=== PATIENT | female | born 1945 | race Caucasian/White ===

== ENCOUNTER 2019-09-23 14:23 | Inpatient (IN) ==
--- NOTE | 2019-09-23 14:56 | EKG Report ---
Test Performed on : 09/23/2019 2:39:55 PM Test Reason : ABNORMAL LABS Blood Pressure : / mmHG Vent. Rate : 087 BPM Atrial Rate : 087 BPM P-R Int : 168 ms QRS Dur : 074 ms QT Int : 364 ms P-R-T Axes : 038 003 054 degrees QTc Int : 438 ms Normal sinus rhythm. Possible Left atrial enlargement Nonspecific ST abnormality Abnormal ECG No previous ECGs available Unconfirmed Result
[2019-09-23 15:04] LABS: BASO# 0.03 X1000 (0.0-0.2); BASO% 0.3 % (0.0-0.8); EOS# 0.32 X1000 (0.0-0.7); EOS% 2.7 % (0.0-10.0); HEMATOCRIT 36.4 % (37.0-47.0); HEMOGLOBIN 11.8 g/dL (12.0-16.0); IMM GRAN# 0.03 X1000 (0.0-0.04); IMM GRAN% 0.3 % (0.0-0.5); LYMPH# 1.61 X1000 (1.2-3.4); LYMPH% 13.7 % (20.5-51.1); MCH 33.8 PG (27-31); MCHC 32.4 g/dL (33-37); MCV 104.3 FL (81-99); MONO# 1.64 X1000 (0.11-0.59); MPV 9.8 FL (7.4-10.4); NEUT# 8.12 X1000 (1.4-6.5); PLT 317 X1000 (130-400); RBC 3.49 XMIL (4.2-5.4); RDW 14.6 % (11.5-14.5); WBC 11.75 X1000 (4.8-10.8)
[2019-09-23] MEDS ORDERED: SOLU-MEDROL IV ONE (15:16)
[2019-09-23] MEDS ORDERED: DUONEB (A & A) INH ONE (15:16)
[2019-09-23] MEDS ORDERED: NS 1,000 ML IV ONE (15:16)
[2019-09-23] MEDS ORDERED: ZOFRAN IV ONE (15:17)
[2019-09-23] MEDS ORDERED: MORPHINE IV ONE (15:17)
[2019-09-23 15:24] LABS: ALB/GLOB RATIO 0.7; ALBUMIN 3.3 g/dL (3.5-5.0); CALCIUM 9.3 mg/dL (8.8-10.2); CREATININE 3.8 mg/dL (0.5-0.9); PHOSPHORUS 4.1 mg/dL (2.7-4.5); POTASSIUM 4.1 mmol/L (3.5-5.1); TOTAL BILIRUBIN 0.56 mg/dL (0.20-1.00); TOTAL PROTEIN 8.1 g/dL (6.3-8.3)
--- NOTE | 2019-09-23 15:26 | Diag Imaging Result Doc PS360 ---
EXAM: CHEST-PORTABLE INDICATION: short of breath TECHNIQUE: One view COMPARISON: None. FINDINGS: There is minimal elevation of the right hemidiaphragm. The central vasculature is somewhat prominent suggesting mild pulmonary venous congestion. There is no discrete pleural fluid collection or pneumothorax. The cardiac silhouette is borderline prominent. IMPRESSION: Borderline prominent heart and suggestion of mild pulmonary venous congestion. Electronically signed by Micheal Mcnair 09/23/2019 3:24 PM
[2019-09-23 15:46] LABS: URINE SOURCE CLEAN CATCH
[2019-09-23 15:55] LABS: BILIRUBIN URINE NEGATIVE (NEGATIVE); BLOOD URINE MODERATE (NEGATIVE); COLOR ORANGE; GLUCOSE URINE NEGATIVE (NEGATIVE); KETONE URINE NEGATIVE (NEGATIVE); LEUKOCYTES URINE LARGE (NEGATIVE); NITRITE URINE NEGATIVE (NEGATIVE); PROTEIN URINE 300 mg/dL (NEGATIVE); SP GRAVITY URINE 1.017; TURBIDITY URINE TURBID (CLEAR); UROBILINOGEN URINE NORMAL (NORMAL)
[2019-09-23] MEDS ORDERED: ROCEPHIN 1 GM in NS 50 ML IV ONE (15:57)
[2019-09-23 16:01] LABS: UR EPITHELIAL CELLS <10 /HPF (<10); URINE BACTERIA 4+ /HPF; URINE CASTS NONE SEEN; URINE RBC TNTC /HPF (<10); URINE WBC TNTC /HPF (<10); URINE YEAST NONE SEEN
--- NOTE | 2019-09-23 16:07 | PROVIDER DOCUMENTATION ---
This chart was entered by Tessa Dixon Scribe, acting as scribe for Fantasma Negron MD. HPI-General Adult - General Chief Complaint: Abnormal Lab[s] Stated Complaint: RT ARM PAIN Time Seen by Provider: 09/23/19 14:44 Source: patient Allergies/Adverse Reactions: Patient Allergies Allergy/AdvReac Type Severity Reaction Status Date / Time No Known Allergies Allergy Verified 09/23/19 15:48 - History of Present Illness -Gen Adult Nature of Presenting Problems: 74yof presents to ED cc abnormal kidney function labs according to Dr. Hampton who called and told pt to come to ED. Pt also c/o of decreased urine output recently. Pt reports she was seen at Dr. Hampton office this morning to have a Remicade infusion & labs. Pt also had a Reclast infusion 3 weeks ago and has been getting them for years. Pt was treated for LLE cellulitis a few weeks ago with 2 shots of IV ABX and a 10 day course which she has finished. Pt has hx of RA/Osteoarthritis/Emphysema. 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 denies: chills, fever, fatique Eyes: reports: no symptoms reported Ears, Nose, Mouth & Throat: reports: no symptoms reported Cardiovascular: reports: no symptoms reported Respiratory: reports: no symptoms reported Gastrointestinal: reports: no symptoms reported Genitourinary: reports: see HPI, urinary retention. denies: dysuria, hematuria Musculoskeletal: reports: no symptoms reported Integumentary: reports: no symptoms reported Neurological: reports: no symptoms reported Psychiatric: reports: no symptoms reported Endocrine: reports: no symptoms reported Hematologic/Lymphatic: reports: see HPI, other (abnormal kidney function labs) Allergic/Immunologic: reports: no symptoms reported All Other Systems: Reviewed and Negative Past History - Adult - PAST MEDICAL HISTORY-ADULT Review of Records: reports: Nursing Assessment Review, Medications Reviewed, Social history reviewed & non-contributory. Major Childhood Illnesses: reports: denies history Cardiovascular: reports: denies history Respiratory: reports: denies history Gastrointestinal: reports: denies history Obstetrical/Gynecological: reports: denies history Genitourinary: reports: denies history Musculoskeletal: reports: denies history Neurological: reports: denies history Endocrine/Immune: reports: denies history Other Conditions: reports: denies history - IMMUNIZATION STATUS Childhood Immunizations: See Nurse Assessment Flu Vaccine: See Nurse Assessment - FAMILY HISTORY Family History: reviewed, not pertinent Physical Exam-General - PHYSICAL EXAM-ADULT Initial Vital Signs Reviewed: Yes - CONSTITUTIONAL General Appearance: appears well, alert, no apparent distress, obese. negative: anxious, combative - EYES Eyes: PERRL/EOMI, pink conjunctivae. negative: photophobia - HEAD, EARS, NOSE, MOUTH & THROAT HENMT: normocephalic/atraumatic, moist mucous membranes. negative: angioedema - NECK Neck: supple, normal inspection - RESPIRATORY Respiratory: chest non-tender, normal breath sounds, no pleuratic chest pain, no respiratory distress, no accessory muscle use, wheezing (expiratory and inspiratory), other (tachypneic). negative: crackles, rales, rhonchi, stridor - CARDIOVASCULAR Cardiovascular: normal peripheral pulses, regular rate, rhythm, no murmur. negative: bradycardia, tachycardia - GASTROINTESTINAL (ABDOMEN) Abdominal Exam: normal bowel sounds, non tender, soft. negative: guarding, rebound - MUSCULOSKELETAL Extremity: deformity (right knuckles), erythema (right wrist), swelling (non- pitting edema to both lower extremities;right wrist), other (well healing spot of cellulitis to LLE) - SKIN Integumentary: normal turgor, warm/dry. negative: diaphoresis, jaundice - PSYCHIATRIC Psych/Mental Status: normal mood/affect, oriented x 3. negative: anxious, disheveled Progress - PLAN OF CARE/RESULTS Progress/Plan/Lab Results: Vital Signs - 8 hr 09/23/19 14:30 Temperature 97.8 F Pulse Rate 88 Respiratory Rate 16 Blood Pressure 121/67 O2 Sat by Pulse Oximetry 98 Laboratory Results - last 24 hr 09/23/19 09/23/19 14:40 14:40 WBC 11.75 H RBC 3.49 L Hgb 11.8 L Hct 36.4 L MCV 104.3 H MCH 33.8 H MCHC 32.4 L RDW Std Deviation 14.6 H Plt Count 317 MPV 9.8 Immature Gran % (Auto) 0.3 Neut % (Auto) 69.0 Lymph % (Auto) 13.7 L Kidder % (Auto) 14.0 H Eos % (Auto) 2.7 Baso % (Auto) 0.3 Immature Gran # (Auto) 0.03 Neut # (Auto) 8.12 H Lymph # (Auto) 1.61 Kidder # (Auto) 1.64 H Eos # (Auto) 0.32 Baso # (Auto) 0.03 Magnesium 2.5 Orders Category Date Time Status CHEST-PORTABLE [RAD] Stat Exams 09/23/19 14:[address] ABDOMEN/PELVIS W/O CONTRAST [CT] Stat Exams 09/23/19 14:45 Ordered CBC WITH ELECTRONIC DIFF [HEME] Stat Lab 09/23/19 14:40 Completed COMPREHENSIVE METABOLIC PANEL [CHEM] Stat Lab 09/23/19 14:40 Received MAGNESIUM [CHEM] Stat Lab 09/23/19 14:40 Completed URINALYSIS [URINALYSIS] Stat Lab 09/23/19 14:45 Ordered phos [PHOSPHORUS] [CHEM] Stat Lab 09/23/19 14:40 Received 0.9% Sodium Chloride Inj [Ns] 1,000 ml Med 09/23/19 15:16 Active IV 999 mls/hr Albuterol 2.5MG/Ipratrop 0.5MG [Duoneb (A & A)] Med 09/23/19 15:16 Discontinued 3 ml INH NOW ONE Methylprednisolone Sod Succ [Solu-Medrol] Med 09/23/19 15:16 Discontinued 125 mg IV NOW ONE Morphine Med 09/23/19 15:17 Discontinued 2 mg IV NOW ONE Ondansetron [Zofran] Med 09/23/19 15:17 Discontinued 4 mg IV NOW ONE Aerosol Treatments Routine Oth 09/23/19 15:16 Active Aerosol Treatments Stat Oth 09/23/19 15:16 Active Generalized Adult Illness >60 Stat Oth 09/23/19 14:35 Ordered EKG [EKG] Stat Ther 09/23/19 14:35 Draft Result Diagrams: 09/23/19 14:40 09/23/19 14:40 - REASSESSMENT Reassessment #1 Time Reassessed: 15:57 Status: improving (given IVF bolus for kidney function, IV rocephin for UTI, IV morphine/zofran for arthritis pain, IV solumedrol/duoneb for wheezing/COPD) - EKG 1 Time of EKG reading by physician:: 14:18 EKG Read and Signed by:: Fantasma Negron EKG Interpretation (*Must complete 3 of following elements*): Abnormal (Possible left atrial enlargement) Rate: 87 Rhythm: NSR [place]: left QRS: poor R wave progression ST Wave: non-specific ST changes - XRAY 1 XRAY: Bilateral XRAY Study: Chest Impression: See EMR Report (IMPRESSION: Borderline prominent heart and suggestion of mild pulmonary venous congestion. Electronically signed by Micheal Mcnair 09/23/2019 3:24 PM) - CT/MRI 1 CT Study: Abdomen (non contrast is pending at 1605) - CONSULTS/PCP/HOSPITALIST Notification #1 *Consult/PCP/Hospitalist*: Hospitalist paged at [phone] Time Discussed: 16:02 ([place]) Consult Disposition: Will see in ED, Admit #2 Consult: Daryn paged at [phone] Time Discussed: 16:04 Reason/Comments: Hospitalist can consult if they need him Consult Disposition: other Departure - Departure Date of Disposition Decision: 09/23/19 Time of Disposition Decision: 16:05 DIAGNOSIS: UTI (urinary tract infection), bacterial, Oliguria due to complication of care, Rheumatoid arthritis flare Acute renal failure (ARF) Qualifiers: Acute renal failure type: with acute tubular necrosis Qualified Code(s): N17.0 - Acute kidney failure with tubular necrosis COPD (chronic obstructive pulmonary disease) with emphysema Qualifiers: Emphysema type: centrilobular Qualified Code(s): J43.2 - Centrilobular emphysema Disposition: ADMITTED INPATIENT 09 Certified Medical Emergency: Emergent Condition: Stable Referrals and Follow-Ups: None,PCP [Primary Care Provider] - - Critical Care Note This patient required my direct & personal management of CC.: Yes Total Time (mins): 35 Critical Care Statement: This patient required my direct personal management to treat or rule out processes, the absence of which, could potentiallly result in sudden, clinically significant life or limb threatening deterioration. Attestation - Physician/ ALEKSANDER Attestation Patient care was provided by Advanced Practice Provider:: No The physician spent face to face time with patient:: Yes Advanced Practice Provider documentation review:: Supervising physician onsite and consulted in the evaluation and care of this patient. The physician did have a face to face encounter with the patient. This chart was documented by the indicated scribe, (Tessa Dixon Scribe) and accurately reflects the services I performed and decisions made by me, Fantasma Negron MD, as attested by the provider's signature.
--- NOTE | 2019-09-23 18:16 | Diag Imaging Result Doc PS360 ---
EXAM: CT ABDOMEN/PELVIS W/O CONTRAST - 09/23/2019 HISTORY: abd pain, acute kidney injury TECHNIQUE: CT abdomen/pelvis without contrast no contrast administered per request of the referring provider. COMPARISON: None. FINDINGS: There is some limitation of detail the setting of trauma due to the lack of administered intravenous contrast. There are ill-defined infiltrates, atelectasis, or scarring at the bilateral lung bases. The liver is of diffusely decreased attenuation consistent with fatty infiltration. There is no focal liver lesion identified. There are no substantial abnormalities of the spleen, adrenal glands, or pancreas identified. The gallbladder is mildly distended. There are no calcified gallstones or pericholecystic inflammation identified. There are some cortical thinning/scarring at the left kidney. There is no renal stone or hydronephrosis identified. There is possibly small amount of perinephric hemorrhage adjacent to the upper pole left kidney. There is no evidence of bowel obstruction. There is colonic diverticulosis. There is no indication of diverticulitis. There is no free air or abscess identified. There is no peritoneal hematoma identified. There is no free fluid identified. The visualized bony structures appear grossly intact. There are some lumbar spine degenerative changes noted. IMPRESSION: Limited exam in the setting of trauma due to the lack of administered intravenous contrast. Some cortical thinning/scarring at left kidney. Possible small amount of perinephric hemorrhage adjacent to the upper pole left kidney. Fatty infiltration of liver. Mildly distended gallbladder. No calcified gallstones. Uncomplicated colonic diverticulosis. Constipation. Ill-defined infiltrates, atelectasis, or scarring at lung bases. This exam was performed using automated exposure control, adjustment of mA or kV according to patient size, and/or use of iterative reconstruction technique. Electronically signed by Dc Abdalla 09/23/2019 6:14 PM
--- NOTE | 2019-09-23 18:56 | HISTORY AND PHYSICAL ---
CHIEF COMPLAINT: The patient was sent from Dr. Hampton's office for KELLY. HISTORY OF PRESENT ILLNESS: This is a 75-year-old female who was sent from Dr. Hampton's office for abnormal renal function. According to him, he went to see Dr. Hampton for an infusion of Remicade that this patient gets every 2 weeks and she also had Reclast infusion 3 weeks ago. Those she has been getting for years. This patient was seen with labs today on those were abnormal so that is the reason why she was sent to the emergency department. The patient also was treated for left lower extremity cellulitis a few weeks ago with antibiotics, 2 shots and also antibiotics by mouth 3 times per day but the patient does not remember what medication they were. Upon my examination, patient is feeling okay, not encephalopathic. We are going to admit this patient for further evaluation and treatment. PAST MEDICAL HISTORY: 1. Rheumatoid arthritis. Patient is getting Remicade every 2 weeks for years. 2. Osteoporosis. Patient is getting Reclast every 2 weeks. 3. Hypertension. 4. Hyperlipidemia. 5. Emphysema. PAST SURGICAL HISTORY: 1. Right ankle surgery with autologous graft 29 years ago. 2. Tonsillectomy. 3. Tubal ligation. ALLERGIES: Patient is allergic to latex, codeine and morphine. SOCIAL HISTORY: The patient drinks alcohol socially. She does not smoke but she quit smoking 3 years ago. She denies using any illicit drugs. REVIEW OF SYSTEMS: Eleven systems were reviewed and all symptoms are related to H P. FAMILY HISTORY: Noncontributory. PHYSICAL EXAMINATION: VITAL SIGNS: Temperature 97.8 degrees, heart rate 88, respiratory rate 16, blood pressure 121/67. O2 saturation 98% on room air. GENERAL: Examination this is a chronically ill-appearing, 75-year-old, female lying in bed, in no acute distress. HEENT: Head is normocephalic, atraumatic. NECK: No JVD noted. No carotid bruits. No lymphadenopathy. No thyromegaly. CARDIOVASCULAR: S1, S2 heard. No murmurs, gallops, or rubs. Regular rate and rhythm. RESPIRATORY: Clear bilaterally to auscultation. No work of breathing or using accessory muscles. ABDOMEN: Soft. Nontender to palpation. Bowel sounds present. No organomegaly. EXTREMITIES: No clubbing, cyanosis, or edema. There is a soft tissue around the right ankle that was secondary to autologous graft. NEUROLOGICAL: The patient is alert, oriented x3. Moves 4 extremities. LABORATORY DATA: White cell count 11.75, hemoglobin 11.9, hematocrit 36.4, platelets 317,000. Sodium 132, potassium 4.1, creatinine 3.8, with GFR 12. Glucose 127. Urinalysis shows too- [id number] white cell count in urine. ASSESSMENT: 1. Acute kidney injury. 2. Urinary tract infection. 3. Apparently altered mental status. PLAN: At this point, patient is going to be admitted to the hospital. Provided IV fluids. Check renal profile tomorrow. We will provide ceftriaxone 1 g IV q.24 hours. Considering that we need to readjust the doses of this medication, we will wait for results of urine culture. We will trend the creatinine and if it does not improve with IV fluids we will consult Renal and we will go from there. cc: Steve Flynn MD
[2019-09-23] MEDS ORDERED: ZOFRAN IV PRN (19:04)
[2019-09-23] MEDS ORDERED: NS 1,000 ML IV SCH (19:04)
[2019-09-23] MEDS: ROCEPHIN 1 GM in NS 50 ML IV SCH (21:06)
[2019-09-23] MEDS: PRILOSEC PO SCH (21:07)
[2019-09-23] MEDS: LOVENOX SUBQ SCH (21:07)
[2019-09-24] MEDS: MORPHINE IV PRN ×2 (02:04→20:16)
[2019-09-24 05:06] LABS: ALLEN TEST YES; BE -6.4 mmoll (-3.0-3.0); BLOOD TYPE ARTERIAL; HCO3-(ACT) 19.8 mmoll (20.0-26.0); METHB 1.2 % (0.0-1.5); O2(CT) 16.9 mL/dL (15.0-23.0); O2HB 92.8 % (95.0-99.0); PCO2(98.6) 37 mmHg (35-45); PO2(98.6) 67 mmHg (60-100); SAMPLE BLOOD; SAO2 95.7 % (95.0-100.0); THB 12.9 g/dL (11.5-17.4); pH(98.6) 7.32 (7.35-7.45)
[2019-09-24 05:08] LABS: MODALITY ROOM AIR
[2019-09-24] MEDS: PRILOSEC PO SCH (06:22)
[2019-09-24 08:12] LABS: ALBUMIN 3.4 g/dL (3.5-5.0); CALCIUM 8.2 mg/dL (8.8-10.2); CREATININE 3.9 mg/dL (0.5-0.9); PHOSPHORUS 4.4 mg/dL (2.7-4.5); POTASSIUM 4.4 mmol/L (3.5-5.1)
[2019-09-24 08:22] LABS: BASO# 0.01 X1000 (0.0-0.2); BASO% 0.1 % (0.0-0.8); HEMATOCRIT 33.7 % (37.0-47.0); HEMOGLOBIN 10.9 g/dL (12.0-16.0); IMM GRAN# 0.05 X1000 (0.0-0.04); IMM GRAN% 0.4 % (0.0-0.5); LYMPH# 1.02 X1000 (1.2-3.4); LYMPH% 7.7 % (20.5-51.1); MCH 33.3 PG (27-31); MCHC 32.3 g/dL (33-37); MCV 103.1 FL (81-99); MONO# 1.04 X1000 (0.11-0.59); MONO% 7.8 % (1.7-9.3); MPV 10.1 FL (7.4-10.4); NEUT# 11.21 X1000 (1.4-6.5); PLT 296 X1000 (130-400); RBC 3.27 XMIL (4.2-5.4); RDW 14.3 % (11.5-14.5); WBC 13.33 X1000 (4.8-10.8)
--- NOTE | 2019-09-24 10:00 | PROGRESS NOTE ---
DATE: 09/24/2019 SUBJECTIVE: Patient reports feeling fine. Denies any fever or chills. Eating okay. Alert and oriented. OBJECTIVE: Vital Signs: Temperature 98.1 degrees, heart rate 90, respiratory rate 14, blood pressure 143/79, O2 saturation 96% on room air. General Examination: This is a 74-year-old female, lying in bed, in no acute distress. Cardiovascular: S1 and S2 heard. No murmurs, gallops, or rubs. Regular rate and rhythm. Respiratory: Clear bilaterally to auscultation. No work of breathing or using accessory muscles. Abdomen: Soft, nontender to palpation. Bowel sounds present. No organomegaly. Extremities: No clubbing, cyanosis, or edema. Peripheral pulses present in both legs. Neurological: The patient is alert and oriented x3. Moves 4 extremities. LABORATORY DATA: Reviewed and basically the creatinine is basically the same in comparing with yesterday, is 3.9, and yesterday was 3.8. Phosphorus is not elevated. ASSESSMENT AND PLAN: 1. Acute kidney injury. I am not quite sure if this condition is new or not, so at this point, the CT of abdomen and pelvis showed possible small amount of perinephric hemorrhage adjacent to the upper pole of the left kidney so I will confirm this finding with an ultrasound of the kidneys. I will call Nephrology and will go from there. 2. Urinary tract infection. We will continue with ceftriaxone. White cell count is almost back to normal and the urine culture is still pending. We will continue to monitor. 3. History of rheumatoid arthritis and osteoporosis. We will continue to monitor. 4. Hypertension. Blood pressure is under control. We will continue with the same management. 5. Disposition. We will continue to monitor this patient closely. We will follow recommendations from Nephrology. cc: Steve Flynn MD
[2019-09-24] MEDS ORDERED: NORCO-10 PO PRN (10:51)
[2019-09-24] MEDS ORDERED: METHOTREXATE PO SCH (11:00)
[2019-09-24] MEDS ORDERED: OMEPRAZOLE PO SCH (11:00)
--- NOTE | 2019-09-24 14:36 | HEMO/ONC CONSULTATION ---
DATE: 09/24/2019 REASON FOR CONSULTATION: This is a known patient of ours for the treatment of osteoporosis and rheumatoid arthritis. HISTORY OF PRESENT ILLNESS: Mr. Rowe is a 74-year-old female who was seen in our office yesterday for her routine infliximab infusion for rheumatoid arthritis. We have been treating the patient per Dr. Clifton's orders every 8 weeks for rheumatoid arthritis. She has been receiving infusions for the last several years. We also treat the patient in the office for osteoporosis. The patient receives Reclast once a year. Her last dose was on 09/16/2019. This was her 7th dose. Her DXA scans have been showing improvement. She has not had any prior complications with Reclast in the past, and the patient's lab values today were adequate. Her creatinine on 09/16/2019 was 0.91. Exactly 1 week later the patient came in for infliximab infusion. We received her creatinine level which was 3.41. The patient received 1 L of normal saline. She admitted that she did have pain with urination and difficulty emptying her bladder over the past week. She has noticed that she has had dark thick urine in the middle of the night last night. A urinalysis and dipstick was done in the office which showed 3+ protein, some blood and leukocytes. Her creatinine did not improve. The patient appeared toxic, very fatigued. She was sent to the ER for sepsis workup and neurology consult. Upon my assessment this morning, the patient states she is feeling much better. She has received antibiotics as well as fluid resuscitation and steroids. Dr. Stearns has also been consulted. PAST MEDICAL HISTORY: 1. Rheumatoid arthritis. The patient receives infliximab every 8 weeks. 2. Osteoporosis. The patient gets Reclast yearly. 3. Hypertension. 4. Hyperlipidemia. 5. Emphysema. SURGICAL HISTORY: 1. Right ankle surgery with autologous graft 29 years ago. 2. Tonsillectomy. 3. Tubal ligation. ALLERGIES: Adhesive tape, bacitracin, codeine, neomycin, polymyxin B, sulfa, latex, codeine and morphine. SOCIAL HISTORY: The patient drinks socially. Former smoker, quit 3 years ago. Denies illicit drug uses. HOME MEDICATIONS: Albuterol, amlodipine, vitamin D3, vitamin B12, Cymbalta, ferrous sulfate, fluticasone, Advair Diskus, folic acid, hydrocodone, Atrovent, methotrexate, omega-3, omeprazole, rosuvastatin, telmisartan. REVIEW OF SYSTEMS: The patient complains of slight dysuria. All other review of systems is negative. PHYSICAL EXAMINATION: Vital Signs: Temperature 99.1, pulse rate 94, respiratory rate 18, blood pressure 132/66, O2 saturation 95% on room air. She is in 0/10 pain. PHYSICAL EXAMINATION: General: The patient is in no acute distress. She is ready for her breakfast this morning. HEENT: Sclerae are anicteric. PERRLA. Oral mucosa is normal. Cardiovascular: Normal S1, S2. Heart rate and rhythm regular. No murmurs noted. Respiratory: Lung sounds are clear to auscultation. Normal respiratory effort. Abdomen: Soft, nontender, nondistended. Bowel sounds are present. No organomegaly noted. Extremities: No lower extremity edema noted. Soft tissue growth noted to right ankle that has been there for years secondary to fracture and surgical repair. Neurological: Alert and oriented x3. Follows commands. No focal motor deficits noted. LABORATORY: WBCs 13.33, hemoglobin 10.9, hematocrit 33.7, platelet count 296,000. Sodium 134, creatinine 3.9, calcium 8.2. Abdomen and pelvis CT without contrast. Some cortical thinning/scarring at the left kidney, possible small amount of perinephric hemorrhage adjacent to the upper pole of the left kidney. Fatty infiltration of the liver. Mildly distended gallbladder. Diverticulosis, constipation. Ill-defined infiltrates, atelectasis or scarring at the lung bases. ASSESSMENT AND PLAN: 1. Acute kidney injury secondary to acute tubular necrosis. It is very possible this occurred in relation to the patient's Reclast which she had 1 week ago. The etiology is not necessarily clear at this point. Nephrology should be consulted. Continue IV fluids and avoid any nephrotoxic drugs. 2. Urinary tract infection. Started the patient on antibiotics. She is starting to feel better. Continue medical management. 3. History of rheumatoid arthritis and osteoporosis. The patient most recently had her arthritis treatment. I am sure she has daily medications that need to be continued. 4. Deep venous thrombosis prophylaxis. The patient will need to be out of the bed at least 3 times a day. Continue Lovenox as ordered. Dictated by JUAN Gardner for Harry Hampton MD As above. Acute renal failure. Dr. Stearns consulted, appreciate help. Continue hydration. Awaiting recovery. Harry Hampton MD cc: Harry Hampton MD [facility]
[2019-09-24] MEDS: FERROUS SULFATE PO SCH (16:25)
[2019-09-24] MEDS: CYMBALTA PO SCH (16:25)
[2019-09-24] MEDS: NORVASC PO SCH (16:25)
[2019-09-24] MEDS: FOLIC ACID PO SCH (16:26)
[2019-09-24] MEDS: CRESTOR PO SCH (16:26)
--- NOTE | 2019-09-24 16:45 | Diag Imaging Result Doc PS360 ---
EXAM: US RENAL 2 (RETROPER) COMPLETE 09/24/2019 HISTORY: yuliet TECHNIQUE: Renal ultrasound COMMENT: The kidneys are without evidence of hydronephrosis or mass. The detail is very poor due to the patient's body habitus. The bladder is not visible as it is empty. The right kidney is 11.8 x 6 x 7.2 cm the left is 8.1 x 4.5 x 3.4 cm. IMPRESSION: No evidence of obstructive uropathy. Electronically signed by Savage Andrews 09/24/2019 4:42 PM
[2019-09-24 18:13] LABS: URINE SOURCE CATH
[2019-09-24 18:16] LABS: BILIRUBIN URINE NEGATIVE (NEGATIVE); BLOOD URINE SMALL (NEGATIVE); COLOR YELLOW; GLUCOSE URINE NEGATIVE (NEGATIVE); KETONE URINE NEGATIVE (NEGATIVE); LEUKOCYTES URINE LARGE (NEGATIVE); NITRITE URINE NEGATIVE (NEGATIVE); PROTEIN URINE 50 mg/dL (NEGATIVE); SP GRAVITY URINE 1.008; TURBIDITY URINE HAZY (CLEAR); UROBILINOGEN URINE NORMAL (NORMAL)
[2019-09-24 18:26] LABS: UR CREAT RANDOM 31.4 mg/dL (11-20); UR PROT RANDOM 48.1 mg/dL
[2019-09-24 18:29] LABS: UR EPITHELIAL CELLS <10 /HPF (<10); URINE BACTERIA NEGATIVE /HPF; URINE RBC <10 /HPF (<10); URINE WBC 20-40 /HPF (<10)
[2019-09-24 18:53] LABS: URINE CASTS WAXY PRESENT; URINE CRYSTALS NONE SEEN; URINE SMALL ROUND CELLS TRANS PRESENT; URINE YEAST NONE SEEN
[2019-09-24] MEDS: LOVENOX SUBQ SCH (20:17)
[2019-09-24] MEDS: ROCEPHIN 1 GM in NS 50 ML IV SCH (20:17)
--- NOTE | 2019-09-24 20:30 | NEPHROLOGY CONSULTATION ---
DATE: 09/24/2019 REASON FOR CONSULTATION: Acute kidney injury. HISTORY OF PRESENT ILLNESS: Ms. Rowe is a 75-year-old white female without a known history of kidney disease. The only creatinine in our system is 0.9 from 1 year ago. She states that she received a routine dose of Reclast on Friday. Since then she has had anorexia, markedly decreased p.o. intake. She had a dose of Remicade on yesterday at which time blood work was collected found her kidney function to be abnormal. She had several hours perhaps most of yesterday when she did not void at all. She did drink extra fluids conscientiously without any apparent change in her urine output. She has a history of hypertension, hyperlipidemia, emphysema, rheumatoid arthritis. No chills, fever, sweats. No cough, sputum. No swelling etc. PAST MEDICAL HISTORY: As above. HOME MEDICATIONS: Include Reclast, Remicade, albuterol amlodipine, vitamin D, duloxetine, iron, fluticasone, folate, methotrexate, vitamin B12, hydrocodone, ipratropium, omeprazole, rosuvastatin, telmisartan. ALLERGIES: Adhesive tape, narcotics. SOCIAL HISTORY: She is . Lives with her . No alcohol or tobacco. FAMILY HISTORY/REVIEW OF SYSTEMS: Negative otherwise. PHYSICAL EXAMINATION: Vital Signs: Blood pressure 132/66, heart rate 94, respiration 18, afebrile. General: She is elderly woman lying in bed. No acute distress. Skin is warm and dry. Conjunctivae are pink and moist. Pupils are equal and round. Oropharynx is clear. Neck: Neck veins are distended. Trachea is midline. Heart: PMI is nondisplaced. Regular rate and rhythm without murmurs, rubs, or gallops. Lungs: Have equal breath sounds. No crackles or wheezes. Abdomen: Soft, nontender. Bowel sounds are present. No organomegaly or masses. Extremities: There is a amorphous mass on the left ankle which is postsurgical. The right wrist is warm and tender and red. Neurologic: Nonfocal. IMPRESSION: Acute kidney injury. Presumed. Likely related to Reclast though her urine does have heavy growth of gram-negative rods with large leukocyte esterase, bui-[id number]-[id number]-count red cells and white cells and bacteria. As such, this may be related to simply pyelonephritis. She underwent CT of the abdomen which mentioned some cortical thinning on the left and a small amount of perinephric hemorrhage on the left but no obstruction. I will place Pickett catheter. She appears volume expanded so I will not add more IV fluids at this time. Urine electrolytes. I stopped her angiotensin receptor adriana and her methotrexate. Will follow with you. cc: Johny Stearns MD
[2019-09-25] MEDS: PRILOSEC PO SCH (06:41)
[2019-09-25] MEDS ORDERED: ADVAIR 100/50 DISKUS INH SCH (07:30)
[2019-09-25 08:07] LABS: BASO# 0.02 X1000 (0.0-0.2); BASO% 0.2 % (0.0-0.8); EOS# 0.02 X1000 (0.0-0.7); EOS% 0.2 % (0.0-10.0); HEMATOCRIT 34.4 % (37.0-47.0); HEMOGLOBIN 11.3 g/dL (12.0-16.0); IMM GRAN# 0.05 X1000 (0.0-0.04); IMM GRAN% 0.4 % (0.0-0.5); LYMPH# 1.68 X1000 (1.2-3.4); LYMPH% 14.6 % (20.5-51.1); MCHC 32.8 g/dL (33-37); MCV 103.6 FL (81-99); MONO# 1.77 X1000 (0.11-0.59); MONO% 15.4 % (1.7-9.3); MPV 9.3 FL (7.4-10.4); NEUT# 7.99 X1000 (1.4-6.5); NEUT% 69.2 % (42.2-75.2); PLT 346 X1000 (130-400); RBC 3.32 XMIL (4.2-5.4); RDW 14.7 % (11.5-14.5); WBC 11.53 X1000 (4.8-10.8)
[2019-09-25 08:33] VITALS: BP 165/63
[2019-09-25 08:44] LABS: ALBUMIN 2.8 g/dL (3.5-5.0); CALCIUM 8.8 mg/dL (8.8-10.2); CREATININE 3.2 mg/dL (0.5-0.9); PHOSPHORUS 4.3 mg/dL (2.7-4.5)
[2019-09-25] MEDS ORDERED: VITAMIN D PO SCH (09:00)
[2019-09-25] MEDS ORDERED: MICARDIS PO SCH (09:00)
[2019-09-25] MEDS ORDERED: VITAMIN B-12 PO SCH (09:00)
[2019-09-25] MEDS: CYMBALTA PO SCH (09:39)
[2019-09-25] MEDS: FOLIC ACID PO SCH (09:39)
[2019-09-25] MEDS: FERROUS SULFATE PO SCH (09:39)
[2019-09-25] MEDS: CRESTOR PO SCH (09:39)
[2019-09-25] MEDS: NORVASC PO SCH (09:39)
--- NOTE | 2019-09-25 16:51 | DISCHARGE SUMMARY ---
ADMISSION DATE: 09/23/2019 DISCHARGE DATE: 09/25/2019 PRIMARY CARE PROVIDER: None. CONSULTATIONS: 1. Dr. Hampton with Oncology. 2. Dr. Stearns with Nephrology. PERTINENT PROCEDURES: 1. Abdomen and pelvis CT. Cortical thinning, scarring of the left kidney, possible small amount of perinephric hemorrhage adjacent to the left upper pole of the kidney, fatty infiltration of the liver, mildly distended gallbladder. No calcified stones, uncomplicated colonic diverticulosis, constipation, ill-defined infiltrates, atelectasis, or scarring at the bases. 2. Renal ultrasound. No evidence of obstructive uropathy. DISCHARGE DIAGNOSES: 1. Acute kidney injury. Imaging revealed some cortical thinning on the left and a small amount of perinephric hemorrhage on the left, but no obstruction. A Pickett catheter was placed. Her ARB and methotrexate have been stopped as well, followed by Nephrology. 2. Urinary tract infection. She has been on IV antibiotics and will be discharged on p.o. Levaquin. 3. History of rheumatoid arthritis and osteoporosis, followed by Dr. Hampton. 4. Apparent altered mental status, now resolved. HOSPITAL COURSE: Briefly, Ms. Rowe is a 74-year-old female who was sent from Dr. Hampton's office for abnormal renal function. She was seeing Dr. Hampton for infusion of Remicade that she gets every 2 weeks as well as Reclast infusion 3 weeks ago. She has been getting those for years. She had also been treated for lower extremity cellulitis a few weeks ago with antibiotics, two shots. She was admitted, started on IV hydration. They checked a renal profile. Consulted Dr. Hampton as well as Dr. Stearns, started her on IV antibiotics. Nephrology recommends starting continuing to keep her ARB and methotrexate stopped as well as her IV fluids, felt the culprit may be her Reclast as well as a combination of her urinary tract infection. She will be discharged back home today. VITAL SIGNS: At time of discharge, temperature is 98.4 degrees, heart rate 91, respirations 18, blood pressure 165/63, O2 is 94% on room air. DISCHARGE DIET: Renal. DISCHARGE MEDICATIONS: 1. Advair Diskus 2 puffs inhaled daily. 2. Norvasc 5 mg p.o. daily. 3. Atrovent 1 puff inhaled daily. 4. Crestor 10 mg tablet p.o. daily. 5. Cymbalta 30 mg p.o. daily. 6. Patten-3 fatty fish oil 1 tab p.o. daily. 7. Flonase 1 inch inhaled daily. 8. Folic acid 1 tab p.o. daily. 9. Iron 325 mg p.o. daily. 10. Onaka 10 one tab p.o. t.i.d. p.r.n. 11. Prilosec 140 mg p.o. daily. 12. ProAir 2 puffs inhaled q. 6 hours. 13. Vitamin B12 2000 units 2 tab daily. 14. Vitamin D3 1 tab p.o. daily. 15. Levaquin 500 mg p.o. daily for 10 days. FOLLOWUP: Ms. Rowe is being discharged back home with self care. She declined home health services as well as any discharge needs. She has a walker and cane at home and has a PCP, Dr. John Sandoval at [place]. She is to take all medications as prescribed. She is to continue to follow up as instructed. She can return to the ED or call 911 for any worsening of symptoms. Dictated by JUAN Santamaria for Steve Flynn MD Addendum: Patient seen and examined by myself. Agree with JUAN note. It reflects my assessment and plan. Patient is being discharged from hospital in stable condition. Will be seen by PCP in a week cc: Steve Flynn MD [facility]
== END 2019-09-25 10:50 | disposition home or self-care (01) | DRG 683 ==
LOC: ED 14:23 → EDIPHOLD 16:41 → 3N 18:21
PROVIDERS: ATTEND Internal Medicine